=== PATIENT | female | born 1975 | race Caucasian/White ===

== ENCOUNTER 2021-02-16 08:56 | Outpatient (REF) | payer OTHER, SELFPAY ==
[2021-02-16 10:21] LABS: MANUAL DIFF FLAG NO
[2021-02-16 10:30] LABS: Basophils Absolute Auto 0.1 X10*3/uL (0.0-0.2); Basophils Percent Auto 0.8 % (0-2); Eosinophils Absolute Auto 0.3 X10*3/uL (0.0-0.4); Eosinophils Percent Auto 3.9 % (0-4); Hematocrit 39.5 % (37-47); Hemoglobin 13.2 g/dl (12.0-16.0); Imm Gran Abs Auto 0.04 X10*3/uL (0.00-0.03); Imm Gran Pct Auto 0.6 % (0.0-0.4); Lymphocytes Percent Auto 41.7 % (20-40); Mean Corpuscular HGB Conc 33.4 g/dl (31.0-35.0); Mean Corpuscular Volume 92.7 fL (80-98); Mean Platelet Volume 9.3 fL (9.4-12.3); Monocytes Absolute Auto 0.5 X10*3/uL (0.1-1.2); Neutrophils Absolute Auto 3.3 X10*3/uL (2.0-8.3); Platelet Count 378 X10*3/uL (160-400); Red Blood Count 4.26 X10*6/uL (4.20-5.50); Red Cell Distribution Width 12.3 % (11.0-16.0); White Blood Count 7.1 X10*3/uL (4.8-10.8)
[2021-02-16 10:46] LABS: Alanine Aminotransferase 35 U/L (0-31); Albumin Level 4.7 g/dL (3.5-5.0); Alkaline Phosphatase 59 U/L (39-117); Anion Gap 15 (12-20); Aspartate Amino Transferase 23 U/L (5-31); Bilirubin Total 0.9 mg/dL (0.0-1.0); Blood Urea Nitrogen 13 mg/dL (9-16); Calcium 9.7 mg/dL (8.4-10.2); Carbon Dioxide 27 mmol/L (22-29); Chloride 101 mmol/L (96-108); Cholesterol 225 mg/dL; Estimated Glomerular Filt Rate > 60; Glucose Fasting 92 mg/dL (60-99); HDL Cholesterol 53 mg/dL; LDL Cholesterol Calculated 145 mg/dl; Potassium 4.9 mmol/L (3.3-5.1); Sodium 138 mmol/L (135-145); Total Protein 7.3 g/dL (6.5-8.0); Triglycerides 136 mg/dL
[2021-02-16 11:09] LABS: TSH reflex Free T4 0.72 uIU/mL (0.32-4.0)
== END 2021-02-16 08:57 | disposition home or self-care (01) ==
LOC: HO.LAB 08:56
PROVIDERS: PCP Family Medicine; Visit Provider Family Medicine
DX: Z00.00 Encounter for general adult medical examination without abnormal findings (principal); Z13.220 Encounter for screening for lipoid disorders; Z13.29 Encounter for screening for other suspected endocrine disorder
CPT/HCPCS: 36415; 80053; 80061; 84443; 85025

== ENCOUNTER 2021-04-11 12:44 | Outpatient (REF) | payer OTHER, SELFPAY ==
[2021-04-11 14:21] LABS: Alanine Aminotransferase 32 U/L (0-31); Albumin Level 4.8 g/dL (3.5-5.0); Alkaline Phosphatase 61 U/L (39-117); Aspartate Amino Transferase 23 U/L (5-31); Bilirubin Direct < 0.2 mg/dL (0.0-0.5); Bilirubin Total 0.4 mg/dL (0.0-1.0); Total Protein 7.7 g/dL (6.5-8.0)
== END 2021-04-11 12:45 | disposition home or self-care (01) ==
LOC: HO.LAB 12:44
PROVIDERS: PCP Family Medicine; Visit Provider Family Medicine
DX: R74.01 Elevation of levels of liver transaminase levels (principal)
CPT/HCPCS: 36415; 80076

== ENCOUNTER → 2021-04-12 10:15 | Outpatient (BNVA) | payer OTHER, SELFPAY | PROVIDERS: PCP Family Medicine; Referring Provider Family Medicine; Visit Provider Internal Medicine Gastroenterology | DX: K21.9 Gastro-esophageal reflux disease without esophagitis (principal); R74.01 Elevation of levels of liver transaminase levels; R13.10 Dysphagia, unspecified | CPT/HCPCS: 99202 ==

== ENCOUNTER → 2021-08-01 08:18 | Outpatient (REF) | payer OTHER, SELFPAY ==
--- NOTE | 2021-08-01 08:24 | CA_ITS ---
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 The visually estimated ejection fraction is between 65-70%. - There is mild aortic valve regurgitation. Findings Left Ventricle Normal left ventricular cavity size. There is mildly increased left ventricular wall thickness. The left ventricular systolic function is normal. The visually estimated ejection fraction is between 65-70%. There is no evidence of regional wall motion abnormalities. Diastolic function is normal for age. Right Ventricle Normal right ventricular cavity size and systolic function. Atria The left atrium is normal in size. The right atrium is normal in size. Aortic Valve There is a normal trileaflet aortic valve. There is no aortic valve stenosis. There is mild aortic valve regurgitation. Mitral Valve The mitral valve appears normal. There is trace mitral valve regurgitation. There is no mitral valve stenosis. Pulmonic Valve The pulmonic valve was not well visualized. Tricuspid Valve There is trace tricuspid valve regurgitation. The pulmonary artery systolic pressure is normal. Great Vessels The aortic annulus, sinuses of valsalva, and asc aorta are normal in size. Venous The inferior vena cava is normal in size and collapses greater than 50% with inspiration. Pericardium/Pleural There is no evidence of pericardial effusion. Prior Study Comparison Changes noted compared to prior study dated: 10/08/2019. Aortic regurgitation appears mild. Measurements 2D Linear Measurements IVSd: 1.09 0.6-0.9/0.6-1.0 cm LVIDd: 4.13 3.9-5.3/4.2-5.9 cm LVIDd Index: 2.14 2.4-3.2/2.2-3.1 cm/m2 LVIDs: 2.15 2.0-3.6 cm LVPWd: 1.26 0.7-1.1 cm Ao Root: 2.80 2.1-3.5 cm LA Diam: 2.50 2.7-3.8/3.0-4.0 cm LAIDs Index: 1.30 1.5-2.3 cm/m2 LV Mass: 209.72 67-162/88-224 g LV Mass Index: 108.66 43-95/49-115 g/m2 LVOT Diam: 1.90 3.0+(-)1.3 cm 2D Systolic Function EF 4C: 79.30 >55% Mitral Valve MV Pk E: 0.75 MV PK A: 0.75 MV Decel Time: 126.00 E/A: 1.00 E'Lateral: 9.36 E'Medial: 9.57 E/E' Med: 7.80 E/E' Lat: 8.00 PHT: 37.00 MVA PHT: 5.95 Decel [place]: 5.92 Aortic Valve AoV Pk Yefri: 177.00 AoV Pk Grad: 13.00 AI Pk Yefri: 4.62 AI [place]: 1.39 LVOT LVOT Pk Yefri: 1.71 LVOT Mn Yefri: 1.18 LVOT VTI: 0.34 LVOT Pk Grad: 12.00 LVOT Mn Grad: 6.00 LVOT Diam: 1.90 LVOT Area: 2.84 Diastolic Function MV Pk E: 0.75 MV Pk A: 0.75 E/A: 1.00 E'Medial: 9.57 E/E' Med: 7.80 E' Laterial: 9.36 E/E' Lat: 8.00 Tricuspid Valve TR Pk Yefri: 2.18 TR Pk Grad: 19.00 RA Press: 3.00 RVSP: 22.00 Great Vessels Aorta Ao Root-2D: 2.80 2.0-3.7 cm Ao Asc: 3.20 2.1-3.4 cm Updated in Other Vendor System with Status of Final Ifeanyi Forte MD electronically signed on 08/01/2021 1:40:14 PM with status of Final
== END ==
LOC: HO.CARD 08:18
PROVIDERS: Visit Provider Family Medicine
DX: I35.8 Other nonrheumatic aortic valve disorders (principal)
CPT/HCPCS: 93306

== ENCOUNTER 2021-08-22 09:06 | Outpatient (REF) | payer OTHER, SELFPAY ==
[2021-08-22 11:25] LABS: Syphilis Screen Nonreactive (Nonreactive)
[2021-08-22 11:29] LABS: HBc Num1 0.08 S/CO (0.00-0.79); Hepatitis B Core Antibody Nonreactive (Nonreactive)
[2021-08-22 12:13] LABS: HIV AB/AG Nonreactive (Nonreactive); HIV Num 1 0.06 S/CO (0.00-0.99); ~HepC Num1 0.07 S/CO (0.00-0.79); ~Hepatitis C Antibody Nonreactive (Nonreactive)
[2021-08-22 16:04] LABS: CT PCR NOT DETECTED (Not Detect.); NG PCR NOT DETECTED (Not Detect.)
[2021-08-24 15:50] LABS: HPV mRNA E6/E7 rflx Not Detected (Not Detected)
== END 2021-08-22 09:07 | disposition home or self-care (01) ==
LOC: HO.LAB 09:06
PROVIDERS: PCP Family Medicine; Visit Provider Advanced Practice Midwife
DX: Z01.419 Encounter for gynecological examination (general) (routine) without abnormal findings (principal); Z87.891 Personal history of nicotine dependence; Z20.2 Contact with and (suspected) exposure to infections with a predominantly sexual mode of transmission
CPT/HCPCS: 36415; 86704; 86780; 86803; 87389; 87491; 87591; 87624; 88142

== ENCOUNTER 2021-09-15 08:11 | Day surgery (SDC) | payer OTHER, SELFPAY ==
[2021-09-09 09:46] VITALS: BMI 36.6
--- NOTE | 2021-09-14 11:50 | P.CONAN_ITS ---
Documented by User: Maria Antonia Roland NP 09/14/21 12:00 HPI - Anesthesia Eval Consult details Narrative: 46yo F for Upper Endoscopy and Colonoscopy Medically optimized per PCP [facility] Active Problems Active Problems: All Active Problems (Updated 09/13/21 @ 11:47 by Bryant Palacios) Abscess (Acute) Pre-operative clearance (Acute) Dysphagia (Acute) Adult general medical exam (Acute) Systolic murmur of aorta (Acute) Screening for cervical cancer (Acute) Screening for breast cancer (Acute) Elevated transaminase level (Acute) Gastritis (Acute) GERD (gastroesophageal reflux disease) (Acute) Shoulder pain, bilateral (Acute) Cervicalgia (Acute) Macromastia (Acute) Laboratory examination ordered as part of a routine general medical examination (Acute) Past Medical History Medical History Acid reflux Collapsed lung Dysphagia Ectopic of ovary Systolic murmur of aorta Family History Family History Father Gout Hypertension Mother Acid reflux Surgical History Surgical History H/O abdominal surgery H/O rhinoplasty Social History Social History Household Members: None Alcohol intake: current Alcohol intake frequency: 0-2 drinks per day Alcohol type: wine Patient Tobacco Use Status: Former Tobacco user Quit Date: 2019 Tobacco use type: Cigarette Use of substances other than those prescribed or required for medical reasons: Yes Substance Use Type: Marijuana Advance Directives: No Advance Directives Information Provided: Yes Advance Directives on File: No Meds Allergies Allergy/AdvReac Type Severity Reaction Status Date / Time No Known Allergies Allergy Verified 09/09/21 09:34 Home Medications Medication Instructions Recorded Confirmed Last Taken Type docusate sodium 100 mg capsule 100 mg PO DAILY 04/12/21 09/09/21 Unknown History Exam Exam Date and Time: September 14, 2021 1150 Height,Weight and Vital Signs: Height 5 ft 3 in Weight 93.894 kg Narrative Narrative: ECHO 07/2021 Conclusions: - The left ventricular systolic function is normal.? The visually estimated ejection fraction is between 65-70%. ? - There is mild aortic valve regurgitation.? ?? Assessment and Plan Assessment Anesthesia Assessment: Chart Reviewed Documented by User: Ary Castillo MD 09/15/21 09:22 PMFSH Past Medical History Medical History Acid reflux Collapsed lung Dysphagia Ectopic of ovary Systolic murmur of aorta Family History Family History Father Gout Hypertension Mother Acid reflux Surgical History Surgical History H/O abdominal surgery H/O rhinoplasty History of Problems with Anesthesia: No Social History Social History Household Members: None Alcohol intake: current Alcohol intake frequency: 0-2 drinks per day Alcohol type: wine Patient Tobacco Use Status: Former Tobacco user Quit Date: 2019 Tobacco use type: Cigarette Use of substances other than those prescribed or required for medical reasons: Yes Substance Use Type: Marijuana Advance Directives: No Advance Directives Information Provided: Yes Advance Directives on File: No Meds Allergies Allergy/AdvReac Type Severity Reaction Status Date / Time No Known Allergies Allergy Verified 09/09/21 09:34 Home Medications Medication Instructions Recorded Confirmed Last Taken Type docusate sodium 100 mg capsule 100 mg PO DAILY 04/12/21 09/09/21 Unknown History Exam Airway Mallampati Class: II TM Dist: >3cm Neck ROM: Full Loose/Missing/Broken Teeth: No Heart: RRR Lungs: CTA Assessment and Plan Assessment Anesthesia Assessment: Anesthesia Plan Discussed Final Anesthetic Review History of Problems with Anesthesia: No NPO: Yes ASA Class: II Final Preanesthetic Review: Meds/Allgs Chart Reviewed, Consent Obtained/Reviewed and Anes Risks/Benef Reviewed Patient Risk: Low Procedure Risk: Intermediate Anesthetic Plan Anesthetic Plan: MAC: Disposition: Standard PACU
--- NOTE | 2021-09-15 08:24 | MHC.SHP ---
Pre-Procedural Eval Section A Date of Service: 09/15/21 Section B Chief Complaint: Rectal Bleeding, Dysphagia Relevant Family History (Specify if Yes): No Relevant Social History: Alcohol Use (wine) Present Medications: see Short Stay Collaborative assessment Medical History: Significant History (Acid reflux Collapsed lung Dysphagia Ectopic of ovary Systolic murmur of aorta) History of Previous Operations: Relevant previous surgery/procedure and date(s) (H/O abdominal surgery H/O rhinoplasty) Allergies: Allergies Allergy/AdvReac Type Severity Reaction Status Date / Time No Known Allergies Allergy Verified 09/09/21 09:34 Review of Systems Sugical H&P ROS: Negative: Constitution, Cardiovascular, Respiratory, Neurological, Psychiatric, Hem-Onc, Allergic/Immunologic, Gastrointestinal, Genitourinary, Musculoskeletal, Integumentary, Endocrine and Eyes/Ears/Nose/Throat Exam Surgical H&P Exam: Normal: HEENT, Normal: Heart, Normal: Lungs, Normal: Extremities, Normal: Abdomen, Normal: Skin and Normal: Neurological Plan Diagnosis/Plan: Unchanged I have reviewed the history and physical and performed a pertinent physical examination on my patient. No changes have occurred unless specified.
[2021-09-15 08:37] VITALS: BP 144/98; PULSE 76; RESP 16; TEMP 36.9; O2SAT 97
[2021-09-15 08:39] LABS: UPreg QC Valid YES; Urine Pregnancy NEGATIVE (NEGATIVE)
--- NOTE | 2021-09-15 08:52 | PC.NURSE ---
IV insertion by Italo Kern RN
[2021-09-15] MEDS: Lactated Ringers 1,000 ML 100 ML IVCONT (09:05)
--- NOTE | 2021-09-15 09:26 | P.OP_ITS ---
Operative Note Operative Note Date of Service: 09/15/21 Narrative: Operative Information Procedure Description: EGD, Colonoscopy FLEXIBLE TRANSORAL UPPER GASTROINTESTINAL ENDOSCOPY AND COLONOSCOPY PROCEDURE NOTE UPPER ENDOSCOPY Consent: Indications for the procedure and potential complications of bleeding, perforation, reaction to medications and missed diagnosis were discussed with the patient and informed consent was obtained. Instrument: Olympus GIF H 190 J mid size upper endoscope Monitoring: Vital signs and clinical assessment, continuous EKG monitoring, Pulse oximetry, Carbon Dioxide monitoring and blood pressure monitoring were done throughout the procedure. Procedure: The patient was placed in the left lateral decubitis position and pre-procedure medications were administered and a bite block was placed. The endoscope was inserted into the mouth and advanced under direct vision to the third part of duodenum. A careful inspection was made as the upper endoscope was withdrawn including a retroflexed examination of the proximal stomach; Findings and interventions are described below. Findings: Larynx:normal Esophagus: GE junction at 37 cm, diaphragm hiatus at 37 cm, boggy and inflammed GEJ with erosive esophagitis, bx taken. There was also esophagitis superficialis dissicans noted, bx taken from distal and proximal esophagus. ballon dilation doen to 19 mm LES and UES with small tear noted at distal esophagus Stomach:Erosive gastritis at antrum. Biopsies were obtained. Grade 2 flap valve on retroflexed examination of the cardia. Duodenum: Normal bulb and descending duodenum, bx taken Intervention: Biopsies as noted above, balloon dilation COLONOSCOPY Instrument: Olympus variable stiffness pediatric scope 190L Colonoscopy Monitoring: Vital signs and clinical assessment, continuous EKG monitoring, Pulse oximetry, Carbon Dioxide monitoring and blood pressure monitoring were done throughout the procedure. Colon withdrawal time was 14 minutes. Procedure: The patient was placed in the left lateral decubitis position and pre-procedure medications were administered. After a digital rectal examination of the ano-rectum, the video colonoscope was inserted into the rectum and advanced through the colon to the cecum/TI. The colonoscope was slowly withdrawn in a retrograde panoramic fashion and the colon mucosa was carefully examined including a retroflexed view of the rectum. Findings and interventions are described below. Procedure Difficulty:moderate Findings: Terminal Ileum-normal Cecum: 8-10 mm sessile polyp removed with snare Ascending Colon: normal Transverse Colon -normal Descending Colon:normal Sigmoid Colon: 8-10 mm sessile polyp removed with cold snare Rectum: Retroflexion with moderate sized internal hemorrhoids, grade I with skin tags Anorectum - normal Colon preparation: [place] Bowel Preparation Scale Right colon; 1 Transverse colon: 2 Left colon; 2 (0 = Unprepared colon segment with mucosa not seen due to solid stool that cannot be cleared. 1 = Portion of mucosa of the colon segment seen, but other areas of the colon segment not well seen due to staining, residual stool and/or opaque liquid. 2 = Minor amount of residual staining, small fragments of stool and/or opaque liquid, but mucosa of colon segment seen well. 3 = Entire mucosa of colon segment seen well with no residual staining, small fragments of stool or opaque liquid) Impression and Post Procedure Diagnosis: Endoscopy Findings: esophagitis gastritis Colonoscopy Findings: polyps internal hemorrhoids Plan: Await Pathology results Repeat Colonoscopy in 5 years due to right sided prep or earlier if clinically indicated High fiber diet leaflet avoid straining at stool, epsom salts and sitz bath, anusol supps or cream check compliance with PPI, if taking then increase to BID and repeat EGD in 3-4 months to check for healing and r/o barretts Above findings were reviewed with the patient and relevant handouts were provided if indicated.
--- NOTE | 2021-09-15 09:26 | PM.OP ---
Brief Operative Note Date of Service: 09/15/21 Pre-op diagnosis: dysphagia, rectal bleeding Post-op diagnosis: same Procedure: see op note Surgeon: August Ellison MD Anesthesia: MAC Was an Heel Lining Paster used for this Procedure?: No Estimated blood loss (mL): 0 Condition: stable Disposition: PACU
[2021-09-15 10:25] VITALS: BP 135/84; PULSE 106; RESP 18; TEMP 36.3; O2SAT 99
--- NOTE | 2021-09-15 10:38 | PC.NURSE ---
MD REYES BY BEDSIDE EVAL PATIENT.
[2021-09-15 10:39] VITALS: BP 142/99; PULSE 102; RESP 18; TEMP 36.4; O2SAT 98
--- NOTE | 2021-09-15 11:08 | PC.NURSE ---
Prescription electronically sent to pharmacy on [facility] but is not reflected on discharge instructions. Patient is aware.
== END 2021-09-15 11:26 | disposition home or self-care (01) ==
PROVIDERS: Nurse Practitioner; PCP Family Medicine; Visit Provider Internal Medicine Gastroenterology
PROC: (CPT 45385; principal; 2021-09-15 09:20)
DX: K62.5 Hemorrhage of anus and rectum (principal); D12.0 Benign neoplasm of cecum; K63.5 Polyp of colon; K64.0 First degree hemorrhoids; K64.4 Residual hemorrhoidal skin tags; R13.10 Dysphagia, unspecified; K22.2 Esophageal obstruction; K22.10 Ulcer of esophagus without bleeding; K29.60 Other gastritis without bleeding; K21.9 Gastro-esophageal reflux disease without esophagitis; K44.9 Diaphragmatic hernia without obstruction or gangrene; R74.01 Elevation of levels of liver transaminase levels; Z87.891 Personal history of nicotine dependence; F12.90 Cannabis use, unspecified, uncomplicated
CPT/HCPCS: 45385; 43249; 43239; 81025; 88305; 88342; C1726; J2250

== ENCOUNTER 2021-09-26 08:24 | Outpatient (REF) | payer OTHER, SELFPAY ==
--- NOTE | ~2021-09-26 | MM_ITS ---
EXAMINATION: MM SCREENING DIGITAL BREAST TOMOSYNTHESIS, BILATERAL CLINICAL INFORMATION: Screening. Asymptomatic. No prior breast imaging. Age 46. No known family history breast cancer. The lifetime risk of breast cancer based on the Tyrer-Cuzick Model is 13%. COMPARISON: None (current study represents initial baseline exam). TECHNIQUE: Digital breast tomosynthesis is performed in both the craniocaudal and mediolateral oblique views along with computer-aided detection (CAD). Synthesized 2D images are generated from the tomosynthesis. FINDINGS: There are scattered areas of fibroglandular density (ACR BI-RADS breast composition Category b). There are no significant masses, abnormal calcifications, or other abnormalities. The axilla and skin contours are unremarkable. MM/MM tomosynthesis screening BI IMPRESSION: No mammographic evidence of malignancy. ASSESSMENT: BI-RADS 1: Negative RECOMMENDATION: Routine annual mammography screening. This patient's information was entered into a reminder system with a target due date for their next mammogram.
== END 2021-09-26 08:25 | disposition home or self-care (01) ==
LOC: HO.MAMMO 08:24
PROVIDERS: Visit Provider Advanced Practice Midwife
DX: Z12.31 Encounter for screening mammogram for malignant neoplasm of breast (principal)
CPT/HCPCS: 77063; 77067

== ENCOUNTER → 2021-09-27 14:34 | Outpatient (BNVA) | payer OTHER, SELFPAY | PROVIDERS: PCP Family Medicine; Visit Provider Internal Medicine Gastroenterology ==

== ENCOUNTER 2022-01-31 08:01 | Day surgery (SDC) | payer OTHER, SELFPAY ==
[2022-01-26 12:37] VITALS: BMI 38.0
--- NOTE | 2022-01-30 10:11 | P.CONAN_ITS ---
Documented by User: Maria Antonia Roland NP 01/30/22 10:13 HPI - Anesthesia Eval Consult details Narrative: 46yo F for Upper Endoscopy s/p EGD and Reading 08/2021 with MAC Medically optimized per PCP 08/2021 PMF Active Problems Active Problems: All Active Problems (Updated 01/26/22 @ 12:30 by Natalia Miranda, RN) Laboratory examination ordered as part of a routine general medical examination (Acute) Macromastia (Acute) Cervicalgia (Acute) Shoulder pain, bilateral (Acute) GERD (gastroesophageal reflux disease) (Acute) Gastritis (Acute) Elevated transaminase level (Acute) Screening for breast cancer (Acute) Screening for cervical cancer (Acute) Adult general medical exam (Acute) Pre-operative clearance (Acute) Abscess (Acute) Dysphagia (Acute) Past Medical History Medical History Acid reflux Collapsed lung Dysphagia Ectopic of ovary Mild aortic valve regurgitation Systolic murmur of aorta Family History Family History Father Gout Hypertension Mother Acid reflux Surgical History Surgical History H/O abdominal surgery H/O rhinoplasty History of esophagogastroduodenoscopy (EGD) Hx of colonoscopy History of Problems with Anesthesia: No Social History Social History Household Members: None Are you a primary primary care pediatrician to a significant other at home: No Do you presently have visiting nurse or other home services: No Alcohol intake: current Alcohol intake frequency: a few times a week Alcohol type: wine Patient Tobacco Use Status: Former Tobacco user Quit Date: 2019 Tobacco use type: Cigarette Use of substances other than those prescribed or required for medical reasons: Yes Substance Use Type: Marijuana Have you been hit, kicked, punched, or otherwise hurt by someone within the past year? If so, by whom?: No Are you DNR?: No Advance Directives: No Advance Directives Information Provided: Yes (mailed prior to last Endoscopy) Advance Directives on File: No Recently lost weight without trying: No Eating poorly because of decreased appetite: No Nutrition Risks: No Nutritional Risk Meds Allergies Allergy/AdvReac Type Severity Reaction Status Date / Time No Known Allergies Allergy Verified 01/26/22 12:31 Home Medications Medication Instructions Recorded Confirmed Last Taken Type docusate sodium 100 mg capsule 100 mg PO DAILY PRN 04/12/21 01/26/22 Unknown History Exam Exam Date and Time: January 30, 2022 1011 Height,Weight and Vital Signs: Height 5 ft 3 in Weight 97.522 kg Narrative Narrative: ECHO 07/2021 Conclusions: - The left ventricular systolic function is normal.? The visually estimated ejection fraction is between 65-70%. ? - There is mild aortic valve regurgitation.?? Assessment and Plan Assessment Anesthesia Assessment: Chart Reviewed Final Anesthetic Review History of Problems with Anesthesia: No Documented by User: Daniel Rivas MD 01/31/22 10:23 [facility] Past Medical History Medical History Acid reflux Collapsed lung Dysphagia Ectopic of ovary Mild aortic valve regurgitation Systolic murmur of aorta Family History Family History Father Gout Hypertension Mother Acid reflux Family history of problems with anesthesia: No Surgical History Surgical History H/O abdominal surgery H/O rhinoplasty History of esophagogastroduodenoscopy (EGD) Hx of colonoscopy Social History Social History Household Members: None Are you a primary primary care pediatrician to a significant other at home: No Do you presently have visiting nurse or other home services: No Alcohol intake: current Alcohol intake frequency: a few times a week Alcohol type: wine Patient Tobacco Use Status: Former Tobacco user Quit Date: 2019 Tobacco use type: Cigarette Use of substances other than those prescribed or required for medical reasons: Yes Substance Use Type: Marijuana Have you been hit, kicked, punched, or otherwise hurt by someone within the past year? If so, by whom?: No Are you DNR?: No Advance Directives: No Advance Directives Information Provided: Yes (mailed prior to last Endoscopy) Advance Directives on File: No Recently lost weight without trying: No Eating poorly because of decreased appetite: No Nutrition Risks: No Nutritional Risk Meds Allergies Allergy/AdvReac Type Severity Reaction Status Date / Time No Known Allergies Allergy Verified 01/26/22 12:31 Home Medications Medication Instructions Recorded Confirmed Last Taken Type docusate sodium 100 mg capsule 100 mg PO DAILY PRN 04/12/21 01/26/22 Unknown History Exam Airway Mallampati Class: II TM Dist: >3cm Neck ROM: Full Loose/Missing/Broken Teeth: No Assessment and Plan Assessment Anesthesia Assessment: Anesthesia Plan Discussed Final Anesthetic Review Family History of Problems with Anesthesia: No NPO: Yes ASA Class: II Final Preanesthetic Review: No Changes in Pt Med Stat, Meds/Allgs Chart Reviewed, Consent Obtained/Reviewed and Anes Risks/Benef Reviewed Patient Risk: Intermediate Procedure Risk: Low Anesthetic Plan Anesthetic Plan: MAC: Disposition: Standard PACU
--- NOTE | 2022-01-31 08:31 | MHC.SHP ---
Pre-Procedural Eval Section A Date of Service: 01/31/22 Section B Chief Complaint: GERD Relevant Family History (Specify if Yes): No Relevant Social History: None Present Medications: see Short Stay Collaborative assessment Medical History: Significant History (Acid reflux Collapsed lung Dysphagia Ectopic of ovary Mild aortic valve regurgitation Systolic murmur of aorta) History of Previous Operations: Relevant previous surgery/procedure and date(s) (H/O abdominal surgery H/O rhinoplasty History of esophagogastroduodenoscopy (EGD) Hx of colonoscopy) Allergies: Allergies Allergy/AdvReac Type Severity Reaction Status Date / Time No Known Allergies Allergy Verified 01/26/22 12:31 Review of Systems Sugical H&P ROS: Negative: Constitution, Cardiovascular, Respiratory, Neurological, Psychiatric, Hem-Onc, Allergic/Immunologic, Gastrointestinal, Genitourinary, Musculoskeletal, Integumentary, Endocrine and Eyes/Ears/Nose/Throat Exam Surgical H&P Exam: Normal: HEENT, Normal: Heart, Normal: Lungs, Normal: Extremities, Normal: Abdomen, Normal: Skin and Normal: Neurological Plan Diagnosis/Plan: Unchanged I have reviewed the history and physical and performed a pertinent physical examination on my patient. No changes have occurred unless specified.
[2022-01-31 08:34] VITALS: BP 136/90; PULSE 68; RESP 16; TEMP 37.1; O2SAT 98
[2022-01-31] MEDS: Lactated Ringers 1,000 ML 100 ML IVCONT (08:38)
[2022-01-31 08:41] LABS: UPreg QC Valid YES; Urine Pregnancy NEGATIVE (NEGATIVE)
--- NOTE | 2022-01-31 09:11 | PM.OP ---
Brief Operative Note Date of Service: 01/31/22 Pre-op diagnosis: GERD with esophagitis, checking for healing and barretts Post-op diagnosis: same Procedure: see op note Surgeon: August Ellison MD Anesthesia: MAC Was an Saxophone Assembler used for this Procedure?: No Estimated blood loss (mL): 0 Condition: stable Disposition: PACU
--- NOTE | 2022-01-31 09:12 | W.PM.OPN ---
Operative Note Operative Note Date of Service: 01/31/22 Narrative: Procedure Description: EGD Indication: GERD with esophagitis, checking for healing and barretts Anesthesia: MAC FLEXIBLE TRANSORAL UPPER GASTROINTESTINAL ENDOSCOPY UPPER ENDOSCOPY Consent: Indications for the procedure and potential complications of bleeding, perforation, reaction to medications and missed diagnosis were discussed with the patient and informed consent was obtained. Instrument: Olympus GIF H 190 J mid size upper endoscope Monitoring: Vital signs and clinical assessment, continuous EKG monitoring, Pulse oximetry, Carbon Dioxide monitoring and blood pressure monitoring were done throughout the procedure. Procedure: The patient was placed in the left lateral decubitis position and pre-procedure medications were administered and a bite block was placed. The endoscope was inserted into the mouth and advanced under direct vision to the third part of duodenum. A careful inspection was made as the upper endoscope was withdrawn including a retroflexed examination of the proximal stomach; Findings and interventions are described below. Findings: Larynx:normal Esophagus: GE junction at 36 cm, diaphragm hiatus at 38 cm, consistent with 2 cm sliding hiatal hernia. There appeared to be short segment barretts with few islands of salmon pink tissue at GEJ and one streaky patch. Bx were taken. overall appearance was improved compared to prior EGD Stomach: Patchy gastric erythema with erosions at antrum. Biopsies were obtained. Grade 2 flap valve on retroflexed examination of the cardia. Duodenum: Normal bulb and descending duodenum, Intervention: Biopsies as noted above Impression/Findings: erosive gastritis suspected short segment barretts esophagus hiatal hernia PLAN: cont with PPI for the meantime, might change depending on bx check nsaid hx reflux precautions
[2022-01-31 09:35] VITALS: BP 145/95; PULSE 89; RESP 16; TEMP 36.6; O2SAT 98
--- NOTE | 2022-01-31 09:40 | PC.NURSE ---
md rick by bedside speking to patient
[2022-01-31 09:50] VITALS: BP 137/93; PULSE 72; RESP 16; TEMP 36.8; O2SAT 99
== END 2022-01-31 10:05 | disposition home or self-care (01) ==
PROVIDERS: Nurse Practitioner; PCP Family Medicine; Visit Provider Internal Medicine Gastroenterology
PROC: 0DJ08ZZ Inspection of Upper Intestinal Tract, Via Natural or Artificial Opening Endoscopic (ICD-10-PCS; CPT 43235; principal; 2022-01-31 09:20)
DX: K21.9 Gastro-esophageal reflux disease without esophagitis (principal); K29.60 Other gastritis without bleeding; K22.70 Barrett's esophagus without dysplasia; K44.9 Diaphragmatic hernia without obstruction or gangrene; R13.10 Dysphagia, unspecified; J98.19 Other pulmonary collapse; R01.1 Cardiac murmur, unspecified; Z79.1 Long term (current) use of non-steroidal anti-inflammatories (NSAID); Z79.899 Other long term (current) drug therapy; F12.90 Cannabis use, unspecified, uncomplicated; Z87.891 Personal history of nicotine dependence
CPT/HCPCS: 43239; 81025; 88305; 88342

== ENCOUNTER → 2022-03-06 09:21 | Outpatient (BNVA) | payer OTHER, SELFPAY | PROVIDERS: PCP Family Medicine; Visit Provider Internal Medicine Gastroenterology | DX: Z13.89 Encounter for screening for other disorder (principal) ==

== ENCOUNTER 2023-06-12 06:50 | Day surgery (SDC) | payer OTHER, SELFPAY ==
[2023-06-12 07:05] VITALS: BMI 34.8
[2023-06-12 07:17] VITALS: BP 142/97; PULSE 62; RESP 16; TEMP 37; O2SAT 97
[2023-06-12 07:22] LABS: UPreg QC Valid YES; Urine Pregnancy NEGATIVE (NEGATIVE)
[2023-06-12] MEDS: Lactated Ringers 1,000 ML 50 ML IVCONT (07:27)
--- NOTE | 2023-06-12 07:34 | P.CONAN_ITS ---
HPI - Anesthesia Eval Consult details Narrative: gerd for upper endo PMFSH Active Problems Active Problems: All Active Problems (Updated 06/26/22 @ 11:36 by Bryant Palacios) Laboratory examination ordered as part of a routine general medical examination (Acute) Macromastia (Acute) Cervicalgia (Acute) Shoulder pain, bilateral (Acute) GERD (gastroesophageal reflux disease) (Acute) Gastritis (Acute) Elevated transaminase level (Acute) Screening for breast cancer (Acute) Screening for cervical cancer (Acute) Adult general medical exam (Acute) Pre-operative clearance (Acute) Abscess (Acute) Tick bite (Acute) Fibromyalgia (Acute) Screening for colon cancer (Acute) Hypertension (Acute) Sciatica (Acute) Dysphagia (Acute) Past Medical History Medical History Acid reflux Collapsed lung Dysphagia Ectopic of ovary Mild aortic valve regurgitation Systolic murmur of aorta Family History Family History Father Gout Hypertension Mother Acid reflux Family history of problems with anesthesia: No Surgical History Surgical History H/O abdominal surgery H/O rhinoplasty History of esophagogastroduodenoscopy (EGD) Hx of colonoscopy History of Problems with Anesthesia: No Social History Social History Household Members: None Housing: House Are you a primary patient care assistant to a significant other at home: No Do you presently have visiting nurse or other home services: No Alcohol intake: current Alcohol intake frequency: a few times a week Alcohol type: wine Patient Tobacco Use Status: Former Tobacco user Quit Date: 2019 Tobacco use type: Cigarette e-Cigarette/Vaping Use: Never Used Second Hand Smoke Exposure: No Use of substances other than those prescribed or required for medical reasons: Yes Substance Use Type: Marijuana Are you DNR?: No Advance Directives: No Advance Directives Information Provided: Yes service: No Current occupational status: employed Current occupational exposures/hazards: No Cognitive needs: No Hearing needs: No Vision needs: Yes Meds Allergies Allergy/AdvReac Type Severity Reaction Status Date / Time No Known Allergies Allergy Verified 06/26/22 11:26 Home Medications Medication Instructions Recorded Confirmed Last Taken Type docusate sodium 100 mg capsule 100 mg PO DAILY PRN Constipation 04/12/21 06/12/23 Unknown History Exam Exam Date and Time: June 12, 2023 0734 Height,Weight and Vital Signs: Height 5 ft 3 in Weight 89.018 kg Last Vital Signs Temp 98.6 F 06/12/23 07:17 Pulse 62 06/12/23 07:17 Resp 16 06/12/23 07:17 BP 142/97 H 06/12/23 07:17 Pulse Ox 97 06/12/23 07:17 O2 Del Method Room Air 06/12/23 07:17 Pertinent Lab Results Pertinent Lab Results: Laboratory Tests 06/12/23 06:56 Urine Test NEGATIVE Airway Mallampati Class: II TM Dist: >3cm Neck ROM: Full Heart: rrr Lungs: cta Assessment and Plan Assessment Anesthesia Assessment: Anesthesia Plan Discussed (binge etoh drinker, marihuana edibles ) and Chart Reviewed Final Anesthetic Review Family History of Problems with Anesthesia: No History of Problems with Anesthesia: No NPO: Yes ASA Class: II Final Preanesthetic Review: No Changes in Pt Med Stat, Meds/Allgs Chart Reviewed, Consent Obtained/Reviewed and Anes Risks/Benef Reviewed Patient Risk: Low Procedure Risk: Low Anesthetic Plan Anesthetic Plan: MAC: Disposition: Standard PACU
--- NOTE | 2023-06-12 08:04 | MHC.SHP ---
Pre-Procedural Eval Section A Date of Service: 06/12/23 Section B Chief Complaint: Gastro-esophageal reflux disease without esophagit Details of Present Illness: hx of esophagitis, to check for healing and barretts Relevant Family History (Specify if Yes): No Relevant Social History: Alcohol Use Present Medications: see Short Stay Collaborative assessment Medical History: Significant History (Acid reflux Collapsed lung Dysphagia Ectopic of ovary Mild aortic valve regurgitation Systolic murmur of aorta) History of Previous Operations: Relevant previous surgery/procedure and date(s) (H/O abdominal surgery H/O rhinoplasty History of esophagogastroduodenoscopy (EGD) Hx of colonoscopy) Allergies: Allergies Allergy/AdvReac Type Severity Reaction Status Date / Time No Known Allergies Allergy Verified 06/26/22 11:26 Review of Systems Sugical H&P ROS: Negative: Constitution, Cardiovascular, Respiratory, Neurological, Psychiatric, Hem-Onc, Allergic/Immunologic, Gastrointestinal, Genitourinary, Musculoskeletal, Integumentary, Endocrine and Eyes/Ears/Nose/Throat Exam Surgical H&P Exam: Normal: HEENT, Normal: Heart, Normal: Lungs, Normal: Extremities, Normal: Abdomen, Normal: Skin and Normal: Neurological Plan Diagnosis/Plan: Unchanged I have reviewed the history and physical and performed a pertinent physical examination on my patient. No changes have occurred unless specified. Time Spent With Patient Time: Total time managing care of this patient today ____ minutes.
--- NOTE | 2023-06-12 08:06 | W.PM.OPN ---
Operative Note Operative Note Date of Service: 06/12/23 Narrative: Procedure Description: EGD Indication: esophagitis Anesthesia: MAC FLEXIBLE TRANSORAL UPPER GASTROINTESTINAL ENDOSCOPY UPPER ENDOSCOPY Consent: Indications for the procedure and potential complications of bleeding, perforation, reaction to medications and missed diagnosis were discussed with the patient and informed consent was obtained. Instrument: Olympus GIF H 190 J mid size upper endoscope Monitoring: Vital signs and clinical assessment, continuous EKG monitoring, Pulse oximetry, Carbon Dioxide monitoring and blood pressure monitoring were done throughout the procedure. Procedure: The patient was placed in the left lateral decubitis position and pre-procedure medications were administered and a bite block was placed. The endoscope was inserted into the mouth and advanced under direct vision to the third part of duodenum. A careful inspection was made as the upper endoscope was withdrawn including a retroflexed examination of the proximal stomach; Findings and interventions are described below. Findings: Larynx:normal Esophagus: GE junction at 36? cm, diaphragm hiatus at 38 cm, consistent with 2 cm sliding hiatal hernia. There appeared to be one tongue of short segment barretts with few islands of salmon pink tissue at GEJ and one streaky erosive tongue. Bx were taken as well as brushings for WATS testing. A non obstructive schatzki ring was also noted. THE GEJ was also lax. Stomach: Patchy gastric erythema with single small erosion at antrum. Biopsies were obtained. Grade 2 flap valve on retroflexed examination of the cardia. Duodenum: Patchy erythema, bx were taken Intervention: Biopsies as noted above, brushings Impression/Findings: erosive gastritis suspected short segment barretts esophagus hiatal hernia schatzki ring erosive esophagitis duodenitis PLAN: cont with PPI for the meantime, she did admit to some compliance issues, and not taken PPI for 1 week prior to this procedure reflux precautions if pos for barretts then repeat EGD in 3-5 yrs
[2023-06-12 08:40] VITALS: BP 127/84; PULSE 89; RESP 18; TEMP 36.4; O2SAT 99
[2023-06-12 08:59] VITALS: BP 140/93; PULSE 72; RESP 18; TEMP 36.4; O2SAT 98
== END 2023-06-12 09:38 | disposition home or self-care (01) ==
PROVIDERS: PCP Family Medicine; Visit Provider Internal Medicine Gastroenterology
PROC: 0DJ08ZZ Inspection of Upper Intestinal Tract, Via Natural or Artificial Opening Endoscopic (ICD-10-PCS; CPT 43235; principal; 2023-06-12 08:20)
DX: K20.80 Other esophagitis without bleeding (principal); K21.9 Gastro-esophageal reflux disease without esophagitis; K29.80 Duodenitis without bleeding; K29.60 Other gastritis without bleeding; K44.9 Diaphragmatic hernia without obstruction or gangrene; K22.2 Esophageal obstruction; Z79.899 Other long term (current) drug therapy
CPT/HCPCS: 43239; 81025; 88305; 88307; 88342

== ENCOUNTER → 2023-06-12 06:50 | Outpatient (BNV) | payer OTHER, SELFPAY | PROVIDERS: PCP Family Medicine; Visit Provider Internal Medicine Gastroenterology | DX: K29.60 Other gastritis without bleeding (principal); K22.2 Esophageal obstruction; K20.80 Other esophagitis without bleeding; K29.80 Duodenitis without bleeding | CPT/HCPCS: 43239 ==

== ENCOUNTER 2023-06-13 08:54 | Outpatient (AMB) | payer OTHER, SELFPAY ==
[2023-06-13 09:01] VITALS: BP 130/76; PULSE 67; O2SAT 100; BMI 34.5
--- NOTE | 2023-06-13 09:01 | A.OFFPC_ITS ---
Vital Signs 06/13/23 09:01 Height 5 ft 3 in Weight 195 lb BMI 34.5 BP 130/76 Blood Pressure Location Lt brachial Position Sitting Pulse 67 Pulse Source Pulse Oximeter Pulse Oximetry (%) 100 Oxygen Delivery Method Room Air Intake Visit Reasons: Physical Exam Intake Note: Patient is here for her physical today. Allergies No Known Allergies Allergy (Verified 06/13/23 09:02) Tobacco use date assessed: 06/13/23 Dental Screening Dental Screen Date: 06/13/23 Did you have a dental visit in the last 12 months?: Yes Did you have a dental problem in the last 6 months where you did not have access to dental care?: No Was dental information given to patient?: Patient has dentist HPI Physical Exam HPI Details 47 y/o female presents for an extended exam with f/u labs and health maintenance. No recent labs to review. Pt reports hx of murmur and states she has had this worked up before but does not remember the details. She tries to eat a healthy diet. She reports she has a pap smear coming up next week. She has not had a mammogram in awhile. She is followed by Dr. Terra HEALY for her colonoscopies. Blood pressure today 130/76. She is on hydrochlorothiazide 12.5mg. [facility] Medical History Acid reflux Collapsed lung Dysphagia Ectopic of ovary Mild aortic valve regurgitation Systolic murmur of aorta Surgical History H/O abdominal surgery H/O rhinoplasty History of esophagogastroduodenoscopy (EGD) Hx of colonoscopy Family History Father Gout Hypertension Mother Acid reflux Social History Household Members: None Housing: House Are you a primary patient care technician to a significant other at home: No Do you presently have visiting nurse or other home services: No Alcohol intake: current Alcohol intake frequency: a few times a week Alcohol type: wine Patient Tobacco Use Status: Former Tobacco user Quit Date: 2019 Tobacco use type: Cigarette e-Cigarette/Vaping Use: Never Used Second Hand Smoke Exposure: No Substance Use Type: Marijuana service: No Current occupational status: employed Current occupational exposures/hazards: No Cognitive needs: No Hearing needs: No Vision needs: Yes Questionnaire PHQ-9 Over the last 2 weeks, how often have you been bothered by any of the following problems? 1. Little interest or pleasure in doing things: not at all 2. Feeling down, depressed, or hopeless: not at all 3. Trouble falling or staying asleep, or sleeping too much: not at all 4. Feeling tired or having little energy: not at all 5. Poor appetite or overeating: not at all 6. Feeling bad about yourself - or that you are a failure or have let yourself or your family down: not at all 7. Trouble concentrating on things, such as reading the newspaper or watching television: not at all 8. Moving or speaking so slowly that other people could have noticed. Or the opposite - being so fidgety or restless that you have been moving around a lot more than usual: not at all 9. Thoughts that you would be better off or of hurting yourself in some way: not at all Total score: 0 Source: Developed by Drs. Donny Anderson, Regina De Santiago, Gonzalo Chung and colleagues, with an educational froylan from [employer]. Thrive Questionnaire I am a: Patient What is your living situation today?: I have a steady place to live Within the past 12 months, did the food you bought not last and you didn't have the money to get more?: Never true Within the past 12 months, did you worry whether your food would run out before you got money to buy more?: Never true Do you have trouble paying for medicines?: No Do you have trouble getting transportation to medical appointments?: No Do you have trouble paying your heating and electricity bill?: No Do you have trouble taking care of your child, family member or friend?: No Do you have trouble with day-to-day activities such as bathing, preparing meals, shopping, managing finances, etc.?: No Are you currently unemployed and looking for a job?: No Are you interested in more education?: No AUDIT C Alcohol Use Questionnaire (AUDIT-C) 1. How often do you have a drink containing alcohol?: 4 or more times a week 2. How many drinks containing alcohol do you have on a typical day when you are drinking?: 1 or 2 3. How often do you have six or more drinks on one occasion?: Less than monthly Total Score: 5 MAURISIO-7 AMB Questionnaire MAURISIO-7 Date MAURISIO - 7 assessed: 06/26/22 Feeling nervous, anxious, or on edge: 0 = Not at all Not being able to stop or control worryin = Not at all Worrying too much about different things: 0 = Not at all Trouble relaxin = Not at all Being so restless that it is hard to sit still: 0 = Not at all Becoming easily annoyed or irritable: 0 = Not at all Feeling afraid as if something awful might happen: 0 = Not at all Total MAURISIO-7 score (0-4 normal; 5-9 mild; 10-14 moderate; 15-21 severe): 0 Source: Developed by Drs. Donny Anderson, Regina De Santiago, Gonzalo Chung and colleagues, with an educational froylan from [employer]. Review of Systems Const Denies chills, Denies fatigue, Denies fever(s), Denies headache(s) and Denies weakness Eyes Denies change in vision ENT Denies dizziness, Denies headache(s), Denies hearing loss, Denies nasal congestion, Denies sinus pain, Denies sinus pressure and Denies sore throat Card Denies chest pain, Denies lightheadedness, Denies dyspnea and Denies other (palpitations) Resp Denies cough, Denies dyspnea and Denies wheezing GI Denies abdominal pain, Denies melena, Denies hematochezia, Denies change in bowel habits, Denies dyspepsia and Denies nausea Denies hematuria and Denies dysuria Musc Denies abnormal gait, Denies myalgias, Denies arthralgias, Denies numbness and Denies tingling Skin/Breast Denies rash, Denies unusual bruising and Denies wounds Neuro Denies abnormal gait, Denies dizziness, Denies headache(s), Denies memory loss, Denies numbness, Denies Sensory deficit (Neuro), Denies tingling and Denies weakness Psych Denies anxiety, Denies depression and Denies memory loss Endo Denies cold intolerance, Denies fatigue, Denies heat intolerance, Denies polydipsia and Denies polyuria Jeyson/Lymph Denies easy bleeding and Denies easy bruising Aller/Immun Denies wheezing Physical exam (Primary Care) Vital Signs: Last Vital Signs Pulse 67 06/13/23 09:01 BP 130/76 06/13/23 09:01 Pulse Ox 100 06/13/23 09:01 Oxygen Delivery Method Room Air 06/13/23 09:01 BMI result Body Mass Index 34.5 Tobacco/Smoking Status: Tobacco use Status Tobacco use date assessed 06/13/23 06/13/23 09:10 Patient Tobacco Use Status Former Tobacco user 06/13/23 09:10 Tobacco use type Cigarette 06/13/23 09:10 e-Cigarette/Vaping Use Never Used 06/13/23 09:10 PHQ-9: PHQ-9 Score PHQ-9: Total score 0 06/13/23 09:33 Const General: no acute distress, well developed, alert and awake Nutritional Appearance: well nourished Orientation/consciousness: patient oriented x3 HENMT Head: Yes normocephalic and Yes atraumatic Ears: hearing grossly normal bilaterally and TM's normal bilaterally General nose exam: Normal external nose present and Normal nares present Mouth: Normal oral and palatal mucosa present and moist mucous membranes Teeth and gingiva: dentition normal Throat: Yes posterior oropharynx normal Eyes General: appearance normal, both eyes and all related structures Pupils: Equal, round and reactive pupils present and Pupil accommodation reflex normal EOM: EOMs intact bilaterally Neck Neck: Yes normal visual inspection, Yes no lymphadenopathy and Yes trachea midline Thyroid: Thyroid normal Carotids: no bruits Lymphatic: no lymphadenopathy noted Chest Chest palpation & inspection: normal inspection of the chest Resp Effort & Inspection: normal respiratory effort Auscultation: clear to auscultation bilaterally Cardio Other: Systolic murmur over aorta likely 4/6 Rate: regular rate Rhythm: regular rhythm Heart sounds: S1 normal heart sound present, S2 normal heart sound present, no gallops, Murmur heart sound present (Systolic, 4/6) and no rubs Bruits: no abdominal aortic bruits and no carotid bruits GI Palpation (GI): No Abdominal aortic bruit present, Soft to palpation, nontender, No hepatosplenomegaly present and No Rebound tenderness present Auscultation: normal bowel sounds General: Yes no CVA tenderness Back/Spine/Pelvis Back: no CVA tenderness Cervical Spine: cervical ROM normal and No Cervical spine tenderness Thoracic/Lumbar Spine: thoraco-lumbar ROM normal, No pain with thoraco-lumbar ROM, No thoracic spinal tenderness and No lumbar spinal tenderness Skin Lesions: no lesions Rashes: no rashes Trauma: no lacerations or abrasions Wounds: no wounds Nails: normal Neuro General: patient oriented x3 Cranial nerves: Yes Equal, round and reactive pupils present Cognition (Neuro): normal cognition Gait exam (Neuro): Normal gait present Motor exam (neuro): 5/5 motor strength present throughout Sensory Exam: No Sensory deficit (Neuro) Deep tendon reflexes (DTR's): Right patellar reflex intensity grade: 2+ and Left patellar reflex intensity grade: 2+ Extrem General: Yes normal to inspection and No edema Psych Appearance: grossly normal Affect: normal affect Attitude: cooperative Thought process: Normal thought process present Assessment and Plan Assessment & Plan (1) Hypertension: Code(s): I10 - Essential (primary) hypertension Plan: Blood pressure is controlled. Goal is less than 140/90 Continue current medication regimen (2) Murmur: Code(s): R01.1 - Cardiac murmur, unspecified Plan: Systolic murmur over aorta likely 02/01 and may be mildly increased from a prior auscultation She has had an echocardiogram in 2020 which showed mild aortic regurgitation no stenosis Auscultatatory findings do not seem consistent with this and there may be a change in her exam. Patient was no longer at exam when imaging was available for review - has follow-up in a couple of weeks where we will discuss (3) GERD (gastroesophageal reflux disease): Code(s): K21.9 - Gastro-esophageal reflux disease without esophagitis Plan: Followed by GI Continue pantoprazole and follow-up with GI as recommended (4) Screening for breast cancer: Code(s): Z12.39 - Encounter for other screening for malignant neoplasm of breast Plan: Overdue for mammogram Mammogram is ordered but patient is not inclined to get tested. Recommended self exams and she will let me know if she is having any changes (5) Screening for cervical cancer: Code(s): Z12.4 - Encounter for screening for malignant neoplasm of cervix Plan: Followed by [facility] [place] test engineer nuclear equipment Has upcoming Pap smear Follow-up with test engineer nuclear equipment as recommended (6) Screening for colon cancer: Code(s): Z12.11 - Encounter for screening for malignant neoplasm of colon Plan: As above, patient is followed by GI Prior colonoscopy showed polyps Follow-up with GI as recommended (7) Adult general medical exam: Code(s): Z00.00 - Encounter for general adult medical examination without abnormal findings Plan: 47-year-old female presents for an extended exam Encouraged healthy diet with active lifestyle and plenty of exercise. Encouraged weight loss Orders: Orders Comprehensive [place]. Panel Fast Today Z00.00 - Encounter for general adult medical examination without abnormal findings Lipid Panel Today Z00.00 - Encounter for general adult medical examination without abnormal findings TSH reflex Free T4 Today Z00.00 - Encounter for general adult medical examination without abnormal findings Microalbumin, Random (w Creat) Today I10 - Essential (primary) hypertension UA and rflx microscopic Today Z00.00 - Encounter for general adult medical examination without abnormal findings MM tomosynthesis screening BI Today Z12.31 - Encounter for screening mammogram for malignant neoplasm of breast Medications: Refilled hydrochlorothiazide 12.5 mg PO QAM 30 tabs 2RF 30 days Coding Level of Care Code Est Pt Level 4 (06434) Diagnoses Hypertension I10 Murmur R01.1 GERD (gastroesophageal reflux disease) K21.9 Screening for breast cancer Z12.39 Screening for cervical cancer Z12.4 Screening for colon cancer Z12.11 Adult general medical exam Z00.00
== END 2023-06-13 09:50 | disposition home or self-care (01) ==
PROVIDERS: Visit Provider Family Medicine
DX: I10 Essential (primary) hypertension (principal); R01.1 Cardiac murmur, unspecified; K21.9 Gastro-esophageal reflux disease without esophagitis; Z12.39 Encounter for other screening for malignant neoplasm of breast; Z12.4 Encounter for screening for malignant neoplasm of cervix; Z12.11 Encounter for screening for malignant neoplasm of colon; Z00.00 Encounter for general adult medical examination without abnormal findings
CPT/HCPCS: 99214

== ENCOUNTER 2023-06-19 12:04 | Outpatient (REF) | payer OTHER, SELFPAY ==
--- NOTE | ~2023-06-19 | MM_ITS ---
EXAMINATION: MM SCREENING DIGITAL BREAST TOMOSYNTHESIS, BILATERAL CLINICAL INFORMATION: Screening. Asymptomatic. COMPARISON: Mammography: This study is compared with prior exams dating back to 2020. TECHNIQUE: Digital breast tomosynthesis is performed in both the craniocaudal and mediolateral oblique views along with computer-aided detection (CAD). Synthesized 2D images are generated from the tomosynthesis. FINDINGS: The breasts are almost entirely fatty (ACR BI-RADS breast composition Category a). There are no significant masses, abnormal calcifications, or other abnormalities. MM/MM tomosynthesis screening BI IMPRESSION: No mammographic evidence of malignancy. ASSESSMENT: BI-RADS BI-RADS 1 - Negative RECOMMENDATION: Routine annual mammography screening. 1 year F/U This examination should not preclude the clinical evaluation of a suspicious palpable abnormality. This patient's information was entered into a reminder system with a target due date for their next mammogram.
== END 2023-06-19 12:05 | disposition home or self-care (01) ==
LOC: HO.MAMMO 12:04
PROVIDERS: PCP Family Medicine; Visit Provider Family Medicine
DX: Z12.31 Encounter for screening mammogram for malignant neoplasm of breast (principal)
CPT/HCPCS: 77063; 77067

== ENCOUNTER → 2023-06-19 12:15 | Outpatient (BNV) | payer OTHER, SELFPAY | PROVIDERS: PCP Family Medicine; Visit Provider Radiology Diagnostic Radiology | DX: Z12.31 Encounter for screening mammogram for malignant neoplasm of breast (principal) | CPT/HCPCS: 77063; 77067 ==

== ENCOUNTER 2023-06-20 07:27 | Outpatient (REF) | payer OTHER, SELFPAY ==
[2023-06-20 10:47] LABS: HIV AB/AG Nonreactive (Nonreactive); HIV Num 1 0.06 S/CO (0.00-0.99); Hepatitis B Core Antibody Nonreactive (Nonreactive); ~HepC Num1 0.08 S/CO (0.00-0.79); ~Hepatitis C Antibody Nonreactive (Nonreactive)
[2023-06-20 10:48] LABS: Syphilis Screen Nonreactive (Nonreactive)
[2023-06-20 11:28] LABS: Appearance Urine Clear; Color Urine Yellow; Glucose Urine UA Negative (Negative); Leukocyte Esterase Urine Moderate (2+) (Negative); Nitrite Urine Negative (Negative); UMIC TRIGGER UA YES; Urine Blood Negative (Negative); Urine Ketones Negative (Negative); Urine Protein Negative (Neg-Trace)
[2023-06-20 11:37] LABS: Bacteria Urine None Seen (None Seen); Hyaline Casts Urine 0-2 /LPF (0-2); RBC Urine 0-2 /HPF (0-2)
[2023-06-20 12:14] LABS: Alanine Aminotransferase 34 U/L (0-31); Albumin Level 4.3 g/dL (3.5-5.0); Alkaline Phosphatase 55 U/L (39-117); Anion Gap 13 (12-20); Aspartate Amino Transferase 29 U/L (5-31); Bilirubin Total 0.7 mg/dL (0.0-1.0); Blood Urea Nitrogen 11 mg/dL (9-16); Calcium 9.8 mg/dL (8.4-10.2); Carbon Dioxide 30 mmol/L (22-29); Chloride 98 mmol/L (96-108); Cholesterol 167 mg/dL (<200); Estimated Glomerular Filt Rate > 60; Glucose Fasting 92 mg/dL (60-99); HDL Cholesterol 59 mg/dL (>40); LDL Cholesterol Calculated 77 mg/dL (<100); Sodium 137 mmol/L (135-145); Total Protein 7.3 g/dL (6.5-8.0); Triglycerides 159 mg/dL (<150)
[2023-06-20 12:31] LABS: Creatinine Urine 48.53 mg/dL; Microalbum/Creatinine Ratio Ur 16.4 ug/mg cr (<30)
[2023-06-20 12:39] LABS: TSH reflex Free T4 1.78 uIU/mL (0.32-4.0)
[2023-06-20 15:28] LABS: CT PCR NOT DETECTED (Not Detect.); NG PCR NOT DETECTED (Not Detect.)
[2023-06-21 20:34] LABS: Follicle Stimulating Hormone 9.2 mIU/mL
== END 2023-06-20 07:28 | disposition home or self-care (01) ==
LOC: HO.WFDLDS 07:27
PROVIDERS: Absent Provider Advanced Practice Midwife; PCP Family Medicine; Visit Provider Family Medicine
DX: Z00.00 Encounter for general adult medical examination without abnormal findings (principal); Z01.419 Encounter for gynecological examination (general) (routine) without abnormal findings; I10 Essential (primary) hypertension; N92.6 Irregular menstruation, unspecified; R23.2 Flushing; R87.619 Unspecified abnormal cytological findings in specimens from cervix uteri; Z20.2 Contact with and (suspected) exposure to infections with a predominantly sexual mode of transmission
CPT/HCPCS: 0353U; 36415; 80053; 80061; 81001; 82043; 83001; 84443; 86704; 86780; 86803; 87389

== ENCOUNTER 2023-06-20 08:20 | Outpatient (AMB) | payer OTHER, SELFPAY ==
--- NOTE | 2023-06-20 08:24 | A.OFFVIS_ITS ---
Intake Vital Signs 06/20/23 08:25 Height 5 ft 3 in Weight 199 lb BMI 35.2 BP 112/70 Intake Visit Reasons: [employer] annual exam Intake Note: The patient agreed to use of a medical dermatologist during this encounter. Scribed for TEMI Trent by Charley Isaacs medical dermatologist, on 06/20/2023 at 8:45 am EST. Crusher Machine Operator: Crusher Machine Operator Present (Eileen) Allergies No Known Allergies Allergy (Verified 06/20/23 08:25) Is last menstrual period known: Yes Last menstrual period: 06/14/23 HPI HPI Comments History of Present Illness Details She is a premenopausal woman presenting for annual exam. She admits to eating healthy and tries to stay active with exercise. Currently not sexually active. Reports skipping her menses for 6 months but had her menses for the last 2 months. Reports hot flashes and recently had lab work done by her PCP. Denies vaginal itching and irritation. Denies family hx of breast, colon and ovarian cancer. STD testing and blood work ordered; she accepts. Last pap smear 08/22/21. Last mammogram 06/19/23. UTD with colonoscopy. Lapse of care for AG and pap last year. [facility] Medical History Abnormal Pap smear of cervix Acid reflux Collapsed lung Dysphagia Ectopic of ovary Hot flashes Mild aortic valve regurgitation Systolic murmur of aorta Surgical History H/O abdominal surgery H/O rhinoplasty History of esophagogastroduodenoscopy (EGD) Hx of colonoscopy Family History Father Gout Hypertension Mother Acid reflux Social History Household Members: None Housing: House Are you a primary progressive care unit registered nurse to a significant other at home: No Do you presently have visiting nurse or other home services: No Alcohol intake: current Alcohol intake frequency: a few times a week Alcohol type: wine Patient Tobacco Use Status: Former Tobacco user Quit Date: 2019 Tobacco use type: Cigarette e-Cigarette/Vaping Use: Never Used Second Hand Smoke Exposure: No Substance Use Type: Marijuana service: No Current occupational status: employed Current occupational exposures/hazards: No Sexual orientation: Straight/Heterosexual Gender identity: Female Cognitive needs: No Hearing needs: No Vision needs: Yes Female Reproductive History Menstrual Duration of menses: 3-5 days Date of last menstrual period: 06/14/23 Total pregnancies: 3 Number of Living Children: 0 Ab induced: 2 Ectopics: 1 Date of last pap smear: 08/22/21 (lgsil neg hpv) History of abnormal pap smear: Yes Date of Mammogram: 06/19/23 (Birad 1) Physical Exam Vital Signs: Last Vital Signs BP 112/70 06/20/23 08:25 BMI result Body Mass Index 35.2 Const General: cooperative, healthy appearing, no acute distress, well developed and alert Orientation/consciousness: patient oriented x3 HEENT Head: Yes normal to inspection Eyes General: appearance normal, both eyes and all related structures Neck Neck: Yes normal visual inspection Thyroid: Thyroid normal Chest Chest palpation & inspection: normal inspection of the chest Breast/axilla inspection: normal inspection of the breasts (no puckering, dimpling, peau de orange, retraction, discharge, masses) Breast/axilla palpation: normal palpation of the breasts Resp Effort & Inspection: normal respiratory effort GI Inspection: Yes normal to inspection Palpation (GI): Soft to palpation (to palpation) Rectal Exam - Female: deferred General: Yes bladder normal to inspection External Female Exam: normal external appearance and normal appearance of the urethra Speculum Exam - Vagina: normal appearance of the vagina, normal palpation and normal vaginal discharge Speculum Exam - Cervix: normal appearance of the cervix and normal palpation Bimanual exam- vagina & uterus: normal palpation and normal palpation Bimanual Exam- Adnexa, other: normal adnexae and no masses Skin General skin exam: no rashes or lesions noted Neuro General: patient oriented x3 Cognition (Neuro): normal cognition Extrem General: Yes normal to inspection Psych Attitude: cooperative Thought process: Normal thought process present Assessment & Plan Assessment & Plan (1) Encounter for well woman exam: Code(s): Z01.419 - Encounter for gynecological examination (general) (routine) without abnormal findings Plan: Discussed: Current recommendations for pap smears per ASCCP guidelines Breast awareness and periodic self breast exams. Maintaining a healthy lifestyle including a well balanced diet and routine exercise. All of her questions and concerns were addressed to the best of my ability. RTO in one year for AG. (2) Irregular menstrual cycle: Code(s): N92.6 - Irregular menstruation, unspecified Plan: Discussed work up including FSH. She is agreeable and will have workup done. Counseled re: perimenopause vs menopause. Monitor periods, report any u nscheduled bleeding, bleeding episodes less than 21 days apart or heavy prolonged menstrual bleeding. (3) Hot flashes: Code(s): R23.2 - Flushing Plan: Counseled on hot flashes. Avoid spicy foods and alcohol. Wear light, layered clothing. Sleep with fan on. Can also try a cooling pillow or mattress. Stay well hydrated. (4) Potential exposure to STD: Code(s): Z20.2 - Contact with and (suspected) exposure to infections with a predominantly sexual mode of transmission Plan: GC/CT panel today. STD blood work ordered. Await results and treat accordingly. Code(s): N92.6 - Irregular menstruation, unspecified (6) Abnormal Pap smear of cervix: Comment: 2020-LGSIL, follow up pap 2022 pending... Code(s): R87.619 - Unspecified abnormal cytological findings in specimens from cervix uteri Plan: Pap obtained today. Orders: Orders CT NG by PCR Today Z20.2 - Contact with and (suspected) exposure to infections with a predominantly sexual mode of transmission Follicle Stimulating Hormone Today R23.2 - Flushing Hepatitis B Core Antibody Today Z20.2 - Contact with and (suspected) exposure to infections with a predominantly sexual mode of transmission Hepatitis C Antibody Today Z20.2 - Contact with and (suspected) exposure to infections with a predominantly sexual mode of transmission HIV Ab/Ag Today Z20.2 - Contact with and (suspected) exposure to infections with a predominantly sexual mode of transmission Syphilis Screen Today Z20.2 - Contact with and (suspected) exposure to infections with a predominantly sexual mode of transmission Pap Smear Today Z01.419 - Encounter for gynecological examination (general) (routine) without abnormal findings Coding Level of Care Code Est Pt Prev Care 40-64y(16001) Diagnoses Encounter for well woman exam Z01.419 Irregular menstrual cycle N92.6 Hot flashes R23.2 Potential exposure to STD Z20.2 Abnormal Pap smear of cervix R87.619
[2023-06-20 08:25] VITALS: BP 112/70; BMI 35.2
== END 2023-06-20 08:55 | disposition home or self-care (01) ==
LOC: HO.HWS 08:20
PROVIDERS: PCP Family Medicine; Visit Provider Advanced Practice Midwife
DX: Z01.419 Encounter for gynecological examination (general) (routine) without abnormal findings (principal); N92.6 Irregular menstruation, unspecified; R23.2 Flushing; Z20.2 Contact with and (suspected) exposure to infections with a predominantly sexual mode of transmission; R87.619 Unspecified abnormal cytological findings in specimens from cervix uteri
CPT/HCPCS: 99396

== ENCOUNTER 2023-06-20 08:48 | Outpatient (REF) | payer OTHER, SELFPAY ==
[2023-06-26 23:08] LABS: HPV mRNA E6/E7 rflx Not Detected (Not Detected)
== END 2023-06-20 08:49 | disposition home or self-care (01) ==
LOC: HO.LNP 08:48
PROVIDERS: Visit Provider Advanced Practice Midwife
DX: Z00.00 Encounter for general adult medical examination without abnormal findings (principal); Z20.2 Contact with and (suspected) exposure to infections with a predominantly sexual mode of transmission; R23.2 Flushing; I10 Essential (primary) hypertension
CPT/HCPCS: 87624; 88142

== ENCOUNTER 2023-06-25 08:59 | Outpatient (AMB) | payer OTHER, SELFPAY ==
--- NOTE | 2023-06-25 09:00 | MHC.OFFVIS ---
Intake Intake Visit Reasons: S/p egd Intake Note: Patient telehealt visit today in follow up of EGD. Reports doing well and denies any new GI concerns. Record Keeper Required: No Allergies No Known Allergies Allergy (Verified 06/25/23 09:04) HPI S/p egd HPI Details RECAP: she was in the [facility] 11/2020 she had sharp pain RUQ she went to the local hospital and had imaging and labs and everything came back ok and she was placed on prilosec since then pain has not really came back she does get acid reflux she has no nausea or vomiting sometimes if she eats food gets stuck and she has to throw it up--had that since 18 yrs of age she has never had an endoscopy no hx of eczema or asthma no blood in stool now but when she had pain above she noted black stools but not since then she hasn;t had prilosec for some months now she does have mild ALT elevation on labs, Hep serologies neg for infection she was drinking heavy over last winter now cut down a lot, few glasses of beer or wine daily ex smoker occ edible THC not taking aspirin or regular NSAID no herbs or supplments EGD/colonoscopy---08/2021 severe esophagitis, dissicans sessile serrated polyp removed EGD: 01/2022 erosive gastritis suspected short segment barretts esophagus hiatal hernia path with chronic esophagitis Patient did admit to taking alleve on a regular basis for body pain, perhaps she has fibromyalgia? she was advised to see PCP and she may benefit to use gabapentin, TCA, trazodone, cymbalta etc. EGD 06/20 erosive gastritis suspected short segment barretts esophagus hiatal hernia schatzki ring erosive esophagitis duodenitis Path: A.? Duodenum, biopsy:? Duodenal mucosa with preserved villi and focal features consistent with chronic/non-specific duodenitis. B.? Stomach, biopsy:? Gastric antral mucosa with focal reactive changes and minimal chronic inactive gastritis; negative for H pylori, intestinal metaplasia and dysplasia. C.? Gastroesophageal junction, biopsy:? Squamous mucosa with numerous intraepithelial eosinophils (up to 40 per per high-power field) consistent with esophagitis, and columnar mucosa with no specific change; negative for intestinal metaplasia and dysplasia. D.? Esophagus, distal, biopsy:? Squamous mucosa with no specific change; no columnar mucosa present. INTERIM: she has quit smoking, not taking nsaid she has been more consistent with medication, trying lifestyle changes denies diarrhea or constipation she has no pain or dysphagia no blood in stool appetite is good A/P: 1/ Esophagitis-- had been non compliant with meds PLAN: 1/ discussed options such as surgery, ARAT, but she wants to cont with medication and lifestyle changes 2/ repeat colon in 5 yrs 3/ taking vitamins D and MV PFSH Medical History Abnormal Pap smear of cervix Acid reflux Collapsed lung Dysphagia Ectopic of ovary Hot flashes Mild aortic valve regurgitation Systolic murmur of aorta Surgical History (Updated 06/25/23 @ 09:04 by CANDELARIA Sharma) H/O abdominal surgery H/O rhinoplasty History of esophagogastroduodenoscopy (EGD) Hx of colonoscopy Family History Father Gout Hypertension Mother Acid reflux Social History Household Members: None Housing: House Are you a primary memory care program resident to a significant other at home: No Do you presently have visiting nurse or other home services: No Alcohol intake: current Alcohol intake frequency: a few times a week Alcohol type: wine Patient Tobacco Use Status: Former Tobacco user Quit Date: 2019 Tobacco use type: Cigarette e-Cigarette/Vaping Use: Never Used Second Hand Smoke Exposure: No Substance Use Type: Marijuana service: No Current occupational status: employed Current occupational exposures/hazards: No Sexual orientation: Straight/Heterosexual Gender identity: Female Cognitive needs: No Hearing needs: No Vision needs: Yes Assessment & Plan Assessment & Plan (1) Gastritis: Code(s): K29.70 - Gastritis, unspecified, without bleeding Telehealth Telehealth Location of provider rendering services: practice address Location of patient: address on file Patient Identification confirmed using: Name, : Yes Telehealth method: video Patient verbally consented to treatment: Yes Patient verbally consented to billing insurance company: Yes Patient informed of any privacy concerns related to visit: Yes Minutes spent on Phone/Video with Pt.: 8 Coding Level of Care Code Tele Est Pt Level 3 (64202) Diagnoses Gastritis K29.70
== END 2023-06-25 10:29 | disposition home or self-care (01) ==
LOC: HO.HGI 08:59
PROVIDERS: PCP Family Medicine; Visit Provider Internal Medicine Gastroenterology
DX: K29.70 Gastritis, unspecified, without bleeding (principal)
CPT/HCPCS: 99213

== ENCOUNTER → 2023-06-25 08:59 | Outpatient (BNVA) | payer OTHER, SELFPAY | PROVIDERS: PCP Family Medicine; Visit Provider Internal Medicine Gastroenterology ==

== ENCOUNTER 2023-07-05 09:29 | Outpatient (AMB) | payer OTHER, SELFPAY ==
--- NOTE | 2023-07-05 09:25 | MHC.PC.OV ---
Intake Visit Reasons: f/u CPE-labs Intake Note: Patient is following up on her labs today. Allergies No Known Allergies Allergy (Verified 07/05/23 09:26) Tobacco use date assessed: 07/05/23 Dental Screening Dental Screen Date: 07/05/23 Did you have a dental visit in the last 12 months?: Yes Did you have a dental problem in the last 6 months where you did not have access to dental care?: No Was dental information given to patient?: Patient has dentist HPI f/u CPE-labs HPI Details 47 y/o female presents to f/u CPE-labs via telemedicine. Labs were drawn 06/20/23. Reviewed labs with pt. Elevated ALT of 34. Triglycerides 159. TC 167. LDL 77. HDL 59. Pap smear 2022 still pending. PFSH Medical History Abnormal Pap smear of cervix Hot flashes Mild aortic valve regurgitation Dysphagia Systolic murmur of aorta Collapsed lung Ectopic of ovary Acid reflux Surgical History History of esophagogastroduodenoscopy (EGD) Hx of colonoscopy H/O abdominal surgery H/O rhinoplasty Family History Father Gout Hypertension Mother Acid reflux Social History Household Members: None Housing: House Are you a primary childcare administrator to a significant other at home: No Do you presently have visiting nurse or other home services: No Alcohol intake: current Alcohol intake frequency: a few times a week Alcohol type: wine Patient Tobacco Use Status: Former Tobacco user Quit Date: 2019 Tobacco use type: Cigarette e-Cigarette/Vaping Use: Never Used Second Hand Smoke Exposure: No Substance Use Type: Marijuana service: No Current occupational status: employed Current occupational exposures/hazards: No Sexual orientation: Straight/Heterosexual Gender identity: Female Cognitive needs: No Hearing needs: No Vision needs: Yes Questionnaire MAURISIO-7 AMB Questionnaire MAURISIO-7 Date MAURISIO - 7 assessed: 06/26/22 Source: Developed by Drs. Donny Anderson, Regina De Santiago, Gonzalo Chung and colleagues, with an educational froylan from [employer]. Review of Systems Const Denies chills, Denies fatigue, Denies fever(s), Denies headache(s) and Denies weakness ENT Denies dizziness and Denies headache(s) Card Denies dyspnea Resp Denies cough, Denies dyspnea, Denies wheezing and Denies other (shortness of breath) Musc Denies numbness and Denies tingling Neuro Denies dizziness, Denies headache(s), Denies numbness, Denies tingling and Denies weakness Psych Denies anxiety and Denies depression Endo Denies fatigue Aller/Immun Denies wheezing Physical exam (Primary Care) Tobacco/Smoking Status: Tobacco use Status Tobacco use date assessed 07/05/23 07/05/23 09:28 Patient Tobacco Use Status Former Tobacco user 07/05/23 09:28 Tobacco use type Cigarette 07/05/23 09:28 e-Cigarette/Vaping Use Never Used 07/05/23 09:28 Telehealth Telehealth Location of provider rendering services: practice address Location of patient: address on file Patient Identification confirmed using: Name, : Yes Telehealth method: voice only Patient verbally consented to treatment: Yes Patient verbally consented to billing insurance company: Yes Patient informed of any privacy concerns related to visit: Yes Minutes spent on Phone/Video with Pt.: 11 Assessment and Plan Assessment & Plan (1) Elevated ALT measurement: Code(s): R74.01 - Elevation of levels of liver transaminase levels Plan: Patient has had a fluctuating mild elevation in ALT She has been working on lifestyle changes Will check liver ultrasound (2) Murmur: Code(s): R01.1 - Cardiac murmur, unspecified Plan: Changing murmur Check echo (3) Abnormal Pap smear of cervix: Comment: 2020-LGSIL, follow up pap 2022 pending... Code(s): R87.619 - Unspecified abnormal cytological findings in specimens from cervix uteri Plan: Results pending. Follow-up with medical billing service as recommended (4) Sciatica: Code(s): M54.30 - Sciatica, unspecified side Plan: Will give her a script for a muscle relaxant and NSAID Also use ice/heat and gentle stretching Call or return to office if not improving or if worsens at any time Orders: Orders CA echo transthoracic complete Today R01.1 - Cardiac murmur, unspecified US abdomen reynoso w elastography Today R74.01 - Elevation of levels of liver transaminase levels Medications: New meloxicam 15 mg PO DAILY 30 tabs 2RF 30 days R74.01 - Elevation of levels of liver transaminase levels cyclobenzaprine 10 mg PO BEDTIME 7 tabs 0RF 7 days Coding Level of Care Code Tele Est Pt Level 2 (31880) Diagnoses Elevated ALT measurement R74.01 Murmur R01.1 Abnormal Pap smear of cervix R87.619 Sciatica M54.30
== END 2023-07-05 10:00 ==
LOC: HO.HMGFM 09:29
PROVIDERS: PCP Family Medicine; Visit Provider Family Medicine
DX: R74.01 Elevation of levels of liver transaminase levels (principal); R01.1 Cardiac murmur, unspecified; R87.619 Unspecified abnormal cytological findings in specimens from cervix uteri; M54.30 Sciatica, unspecified side
CPT/HCPCS: 99212

== ENCOUNTER 2023-09-12 07:51 | Outpatient (REF) | payer OTHER, SELFPAY ==
--- NOTE | ~2023-09-12 | US_ITS ---
EXAMINATION: US ABDOMEN LIMITED WITH LIVER ELASTOGRAPHY CLINICAL INFORMATION: Elevated transaminase COMPARISON: None available. TECHNIQUE: Real-time imaging of the abdominal viscera. Noninvasive ultrasound liver fibrosis assessment is performed using Dino ElastPQ point quantification shear wave elastography (2D-SWE) with a C5-2 MHz transducer. Multiple elastography samples are obtained. FINDINGS: PANCREAS: Normal. LIVER: Liver echotexture is increased. Liver is normal in size and contour. No focal lesion or intrahepatic biliary duct dilatation. The right lobe measures 16.5 cm in length. The left lobe measures 11.2 cm in length. Portal flow is normal/hepatopedal Shear wave liver elastography median stiffness is 1.5 m/s (reference: normal median stiffness is 1.3 m/s or less). IQR/median stiffness to assess sampling precision is 0.09 (reference: good quality data set is IQR/median stiffness of 0.15 or less). GALLBLADDER: Small 4 x 3 mm echogenic lesion adjacent to the gallbladder wall that does not move or shadow suggestive of a polyp. No definite gallstones. Upper normal-size gallbladder. No gallbladder wall thickening or pericholecystic fluid. COMMON BILE DUCT: Normal in caliber measuring 0.4 cm in diameter. RIGHT KIDNEY: Normal. No hydronephrosis. No renal calculi or focal parenchymal lesions. The kidney measures 10 cm in maximum dimension. FREE FLUID: None. US/US abdomen reynoso w elastography IMPRESSION: 1. Impression: Echogenic liver. Differential would include fatty infiltration and hepatocellular disease. Small gallbladder wall polyp. 2. Liver elastography: Adequate liver sampling In the absence of other known clinical signs, rules out compensated advanced chronic liver disease. REFERENCE: Society of Radiologists in Ultrasound Liver Stiffness Thresholds (2020): LIVER STIFFNESS THRESHOLDS: *Liver Stiffness equal or less than 1.3 m/s: High probability of being normal. *Liver Stiffness less than 1.7 m/s: In the absence of other known clinical signs, rules out compensated advanced chronic liver disease. *Liver Stiffness 1.7-2.1 m/s: Suggestive of compensated advanced chronic liver disease but need further test for confirmation. *Liver Stiffness over 2.1 m/s: Rules in compensated advanced chronic liver disease. *Liver Stiffness over 2.4 m/s: Suggestive of clinically significant portal hypertension. QUALITY OF DATA SET: *IQR/Median value equal or less than 0.15 implies a quality data set. *IQR/Median value over 0.15 implies a poor quality data set. SIGNIFICANT CHANGE FROM PRIOR EXAM: Significant change if liver stiffness measurement is 10% or greater from prior exam. OTHER CONSIDERATIONS: The stage of liver fibrosis may be overestimated in the setting of acute hepatitis, liver inflammation, elevated liver function tests, hepatic vascular congestion, obstructive cholestasis, non-fasting state, and infiltrative diseases such as amyloidosis and lymphoma. In some patients with NAFLD, the liver stiffness thresholds for compensated advanced chronic liver disease may be lower. In causes other than viral hepatitis and NAFLD, liver stiffness thresholds are not well established.
--- NOTE | 2023-09-12 08:47 | CA_ITS ---
Transthoracic Echocardiogram Patient (Last, First, Middle): Adriane Cotto, Gender: Female Date of : 1975 Age: 48 Procedure Date: 09/12/2023 Procedure Type: Transthoracic Echocardiogram Location: OP Height: 160.02 cm Weight: 90.27 kg BSA: 1.93 m2 Heart Rate: 72 bpm BP: 118 / 66 mmHg [employer] Mixing Plant Laborer: SB Referring MD: Jerome Garcia MD Symptoms: R01.1 - Cardiac murmur, unspecified Study Quality: Fair parasternal images ECG Rhythm: Sinus Conclusions: - The left ventricular systolic function is hyperdynamic. The visually estimated ejection fraction is >70%. - There is mild septal asymmetric hypertrophy. - There is mild aortic valve regurgitation. Findings Procedure Information The quality of the study was technically difficult. The study quality is limited by patients body habitus. Left Ventricle Normal left ventricular cavity size. The left ventricular systolic function is hyperdynamic. The visually estimated ejection fraction is >70%. There is no evidence of regional wall motion abnormalities. There is no dynamic left ventricular obstruction. There is no dynamic left ventricular outflow tract obstruction. Diastolic function is normal for age. There is mild septal asymmetric hypertrophy. Right Ventricle Normal right ventricular cavity size and systolic function. Atria Both atria are normal in size. Aortic Valve The aortic valve was not well visualized. There is no aortic valve stenosis. There is mild aortic valve regurgitation. Mitral Valve The mitral valve appears normal. There is mild anterior mitral leaflet thickening. There is no mitral valve regurgitation. There is no mitral valve stenosis. Pulmonic Valve The pulmonic valve is likely normal. Tricuspid Valve Normal tricuspid valve structure. There is no tricuspid valve regurgitation. Tricuspid regurgitation envelope is inadequate for calculation of right ventricular systolic pressure. Great Vessels The asc aorta is normal in size. Venous The inferior vena cava is normal in size and collapses less than 50% with inspiration. Pericardium/Pleural There is no evidence of pericardial effusion. Prior Study Comparison No significant change compared to prior study dated: 08/01/2021. Measurements 2D Linear Measurements IVSd: 1.20 0.6-0.9/0.6-1.0 cm LVIDd: 3.82 3.9-5.3/4.2-5.9 cm LVIDd Index: 1.98 2.4-3.2/2.2-3.1 cm/m2 LVIDs: 2.38 2.0-3.6 cm LVPWd: 0.99 0.7-1.1 cm LA Diam: 3.30 2.7-3.8/3.0-4.0 cm LAIDs Index: 1.71 1.5-2.3 cm/m2 LV Mass: 167.79 67-162/88-224 g LV Mass Index: 86.94 43-95/49-115 g/m2 LVOT Diam: 1.80 3.0+(-)1.3 cm 2D Systolic Function EF 4C: 59.00 >55% Mitral Valve MV Pk E: 0.73 MV PK A: 0.93 MV Decel Time: 193.00 E/A: 0.80 E'Lateral: 6.53 E'Medial: 9.03 E/E' Med: 8.10 E/E' Lat: 11.20 PHT: 56.00 MVA PHT: 3.93 Decel Barnwell: 3.81 Aortic Valve AoV Pk Yefri: 1.84 AoV Mn Yefri: 1.35 AoV VTI: 0.37 AoV Pk Grad: 14.00 Aov Mn Grad: 8.00 LYNDSEY Cont.VTI: 2.29 AI Pk Yefri: 5.29 AI VTI: 2.69 AI Barnwell: 2.00 LVOT LVOT Pk Yefri: 1.68 LVOT Mn Yefri: 1.17 LVOT VTI: 0.34 LVOT Pk Grad: 11.00 LVOT Mn Grad: 7.00 LVOT Diam: 1.80 LVOT Area: 2.54 Diastolic Function MV Pk E: 0.73 MV Pk A: 0.93 E/A: 0.80 E'Medial: 9.03 E/E' Med: 8.10 E' Laterial: 6.53 E/E' Lat: 11.20 Right Ventricle TAPSE (mm): 22.10 TVS' Yefri: 10.80 Tricuspid Valve RA Press: 3.00 Great Vessels Aorta Sinus of Valsalva: 2.90 2.0-3.5 cm Ao Asc: 3.50 2.1-3.4 cm Pulmonary Veins Pulm Vein S/D 1.40 Updated in Other Vendor System with Status of Final Ifeanyi Forte MD electronically signed on 09/13/2023 12:29:19 PM with status of Final
== END 2023-09-12 07:52 | disposition home or self-care (01) ==
LOC: HO.US 07:51
PROVIDERS: PCP Family Medicine; Visit Provider Family Medicine
DX: R74.01 Elevation of levels of liver transaminase levels (principal); R01.1 Cardiac murmur, unspecified
CPT/HCPCS: 76705; 76981; 93306

== ENCOUNTER → 2023-09-12 08:47 | Outpatient (BNV) | payer OTHER, SELFPAY | PROVIDERS: PCP Family Medicine; Visit Provider Internal Medicine | DX: I35.1 Nonrheumatic aortic (valve) insufficiency (principal) | CPT/HCPCS: 93306 ==

== ENCOUNTER 2023-09-24 16:36 | Outpatient (AMB) | payer OTHER, SELFPAY ==
--- NOTE | 2023-09-24 16:34 | MHC.PC.OV ---
Intake Visit Reasons: discuss results [phone] Intake Note: Patient ready to discuss ultrasound and echocardiogram. Allergies No Known Allergies Allergy (Verified 07/05/23 09:26) Tobacco use date assessed: 07/05/23 HPI discuss results [phone] HPI Details 48 y/o female presents to f/u labs and liver enzymes. Liver ultrasound 09/12/23 showed an echogenic liver, with differential including fatty infiltration and hepatocellular disease. Also showed a small gallbladder wall polyp. Echocardiogram 09/12/23 showed mild aortic valve reurgitation, mild septal asymmetric hypertropy, hyperdynamic L ventricular systolic function. Visually estimated ejection fraction is > 70%. [facility] Medical History (Updated 07/12/23 @ 10:09 by Arlene Canchola CNM) Abnormal Pap smear of cervix Hot flashes Mild aortic valve regurgitation Dysphagia Systolic murmur of aorta Collapsed lung Ectopic of ovary Acid reflux Surgical History History of esophagogastroduodenoscopy (EGD) Hx of colonoscopy H/O abdominal surgery H/O rhinoplasty Family History Father Gout Hypertension Mother Acid reflux Household Members: None Housing: House Are you a primary healthcare network consultant to a significant other at home: No Do you presently have visiting nurse or other home services: No Alcohol intake: current Alcohol intake frequency: a few times a week Alcohol type: wine Patient Tobacco Use Status: Former Tobacco user Quit Date: 2019 Tobacco use type: Cigarette e-Cigarette/Vaping Use: Never Used Second Hand Smoke Exposure: No Substance Use Type: Marijuana service: No Current occupational status: employed Current occupational exposures/hazards: No Sexual orientation: Straight/Heterosexual Gender identity: Female Cognitive needs: No Hearing needs: No Vision needs: Yes Questionnaire MAURISIO-7 AMB Questionnaire MAURISIO-7 Date MAURISIO - 7 assessed: 06/26/22 Source: Developed by Drs. Donny Anderson, Regina De Santiago, Gonzalo Chung and colleagues, with an educational froylan from [employer]. Review of Systems Const Denies chills, Denies fatigue, Denies fever(s), Denies headache(s) and Denies weakness ENT Denies dizziness and Denies headache(s) Card Denies dyspnea Resp Denies cough, Denies dyspnea, Denies wheezing and Denies other (shortness of breath) Musc Denies numbness and Denies tingling Neuro Denies dizziness, Denies headache(s), Denies numbness, Denies tingling and Denies weakness Psych Denies anxiety and Denies depression Endo Denies fatigue Aller/Immun Denies wheezing Physical exam (Primary Care) Tobacco/Smoking Status: Tobacco use Status Tobacco use date assessed 07/05/23 09/24/23 16:36 Patient Tobacco Use Status Former Tobacco user 09/24/23 16:36 Tobacco use type Cigarette 09/24/23 16:36 e-Cigarette/Vaping Use Never Used 09/24/23 16:36 Telehealth Telehealth Location of provider rendering services: practice address Location of patient: address on file Patient Identification confirmed using: Name, : Yes Telehealth method: voice only Patient verbally consented to treatment: Yes Patient verbally consented to billing insurance company: Yes Patient informed of any privacy concerns related to visit: Yes Assessment and Plan Assessment & Plan (1) Elevated ALT measurement: Code(s): R74.01 - Elevation of levels of liver transaminase levels Plan: Liver?ultrasound?shows?increased?echogenicity?consistent?with?fatty?liver?disorder.??Also?mildly?elevated?liver?stiffness?by?elastography. Advised?weight?loss Also?showed?incidental?gallbladder?polyp We?can?follow-up?on?these?in?a?year?or?sooner?if?clinically?indicated. (2) Murmur: Code(s): R01.1 - Cardiac murmur, unspecified Plan: Changing?murmur?and?echocardiogram?has?changed?since?2020. Moderate?aortic?regurgitation?and?some?septal?hypertrophy.??Also?ejection?fraction?hyperdynamic;?70% Referred?to?cardiology Maintain?good?blood?pressure?control Orders: Orders US abdomen reynoso w elastography 11 Months K82.4 - Cholesterolosis of gallbladder, R74.01 - Elevation of levels of liver transaminase levels Coding Level of Care Code Tele Est Pt Level 2 (56678) Diagnoses Elevated ALT measurement R74.01 Murmur R01.1
== END 2023-09-24 16:50 ==
PROVIDERS: PCP Family Medicine; Visit Provider Family Medicine
DX: R74.01 Elevation of levels of liver transaminase levels (principal); R01.1 Cardiac murmur, unspecified
CPT/HCPCS: 99212